=== PATIENT | female | born 1960 | race Caucasian/White ===

== ENCOUNTER 2018-10-29 13:36 | Inpatient (IN) ==
[2018-10-29 14:29] LABS: BASO# 0.06 X1000 (0.0-0.2); BASO% 0.6 % (0.0-0.8); EOS# 0.15 X1000 (0.0-0.7); EOS% 1.6 % (0.0-10.0); HEMATOCRIT 41.1 % (37.0-47.0); HEMOGLOBIN 13.9 g/dL (12.0-16.0); IMM GRAN# 0.07 X1000 (0.0-0.04); IMM GRAN% 0.8 % (0.0-0.5); LYMPH# 1.91 X1000 (1.2-3.4); LYMPH% 20.6 % (20.5-51.1); MCHC 33.8 g/dL (33-37); MCV 94.5 FL (81-99); MONO# 0.61 X1000 (0.11-0.59); MONO% 6.6 % (1.7-9.3); MPV 9.8 FL (7.4-10.4); NEUT# 6.45 X1000 (1.4-6.5); NEUT% 69.8 % (42.2-75.2); PLT 291 X1000 (130-400); RBC 4.35 XMIL (4.2-5.4); RDW 12.1 % (11.5-14.5); WBC 9.25 X1000 (4.8-10.8)
[2018-10-29 15:11] LABS: AGAP 13; ALBUMIN 4.2 g/dL (3.5-5.0); ALKALINE PHOSPHATASE 94 U/L (32-104); BUN 12 mg/dL (8-22); CALCIUM 8.8 mg/dL (8.8-10.2); CHLORIDE 98 mmol/L (98-107); COSMO 267; CREATININE 0.5 mg/dL (0.5-0.9); ESTIMATED GFR > 60; GLUCOSE 120 mg/dL (70-104); GOT 28 U/L (10-30); GPT 35 U/L (10-36); POTASSIUM 4.7 mmol/L (3.5-5.1); SODIUM 133 mmol/L (136-145); TCO2 22 mmol/L (25-35); TOTAL PROTEIN 7.3 g/dL (6.3-8.3)
--- NOTE | 2018-10-29 15:11 | Diag Imaging Result Doc PS360 ---
EXAM: CT HEAD W/O CONTRAST HISTORY: altered mental status TECHNIQUE: Images were obtained from the skull base to vertex without IV contrast as per standard protocol. COMPARISON: None. FINDINGS: The most inferior aspect of the cerebellum is noted from the radiographic field. There is hypodensity left cerebellar hemisphere possibly related to old infarct. No acute hemorrhage. No midline shift or mass effect. No hydrocephalus. No evidence for infarct given the limited sensitivity of CT. There is deep white matter hypodensity nonspecific in appearance but likely related to microvascular disease there is cerebral atrophy. IMPRESSION: 1.Atrophy and microvascular disease. 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 The most caudal images through the cerebellum were not included in the radiographic field of view. This exam was performed using automated exposure control, adjustment of mA or kV according to patient size, and/or use of iterative reconstruction technique. Electronically signed by Lucinda Fuentes 10/29/2018 3:08 PM
[2018-10-29 15:30] LABS: FREE T4 0.89 ng/dL (0.93-1.70); TSH 1.54 uIUmL (0.27-4.20)
[2018-10-29 15:46] LABS: BILIRUBIN URINE NEGATIVE (NEGATIVE); BLOOD URINE NEGATIVE (NEGATIVE); CLARITY CLEAR (CLEAR); COLOR YELLOW; GLUCOSE URINE NEGATIVE (NEGATIVE); KETONE URINE NEGATIVE (NEGATIVE); LEUKOCYTES URINE NEGATIVE (NEGATIVE); NITRITE URINE NEGATIVE (NEGATIVE); PROTEIN URINE NEGATIVE (NEGATIVE); UROBILINOGEN URINE NORMAL
[2018-10-29 15:49] LABS: URINE BACTERIA 1+ /HFP; URINE CAST NONE SEEN /LPF; URINE CRYSTAL NONE SEEN /HPF; URINE EPITHELIAL CELLS <10 /HPF (<10); URINE SOURCE CATH; URINE YEAST NONE SEEN /HPF
[2018-10-29 15:59] LABS: UR AMPHETAMINES QUAL NONE DETECTED (NONE DETECT); UR BARBITUATES QUAL NONE DETECTED (NONE DETECT); UR BENZODIAZEPIN QUAL NONE DETECTED (NONE DETECT); UR CANNABINOIDS QUAL PRESUMPTIVE POSITIVE (NONE DETECT); UR COCAINE QUAL NONE DETECTED (NONE DETECT); UR METHADONE QUAL NONE DETECTED (NONE DETECT); UR METHAMPHETAMINE QUAL NONE DETECTED (NONE DETECT); UR OPIATES QUAL NONE DETECTED (NONE DETECT); UR OXYCODONE QUAL NONE DETECTED (NONE DETECT); UR PCP QUAL NONE DETECTED (NONE DETECT); UR PROPOXYPHENE QUAL NONE DETECTED (NONE DETECT); UR TCA QUAL NONE DETECTED (NONE DETECT)
--- NOTE | 2018-10-29 16:24 | Diag Imaging Result Doc PS360 ---
EXAM: CHEST-PORTABLE 10/29/2018 HISTORY: cough, hypoxia TECHNIQUE: AP portable erect at 1606 COMMENT: The inspiration is suboptimal. There are no previous studies available for comparison. There is no focal opacity. The possibility of mild pulmonary edema cannot be entirely excluded. IMPRESSION: Suboptimal inspiration. Questionable pulmonary edema. Electronically signed by Mando Carballo 10/29/2018 4:21 PM
--- NOTE | 2018-10-29 17:22 | PROVIDER DOCUMENTATION ---
This chart was entered by Amanda Hong Scribe, acting as scribe for Kayleigh Acosta MD. HPI-General Adult - General Chief Complaint: Altered Mental Status Stated Complaint: AMS Time Seen by Provider: 10/29/18 13:58 Source: patient, EMS Unable to obtain history due to:: other (pt is not speaking at this time by choice) Allergies/Adverse Reactions: Patient Allergies Allergy/AdvReac Type Severity Reaction Status Date / Time No Known Allergies Allergy Verified 09/05/15 18:17 Home Medications: Home Medication List Medication Instructions Recorded Confirmed Last Taken Type ATORVAstatin [Lipitor] 40 mg PO QHS 09/05/15 09/05/15 1 Day Ago History ~09/04/15 Amlodipine [Norvasc] 5 mg PO DAILY 09/05/15 09/05/15 09/05/15 08:00 History Ezetimibe [Zetia] 10 mg PO DAILY 09/05/15 09/05/15 09/05/15 08:00 History Lisinopril 20 mg PO DAILY 09/05/15 09/05/15 09/05/15 08:00 History Omeprazole 40 mg PO DAILY 09/05/15 09/05/15 09/05/15 08:00 History Venlafaxine [Effexor] 75 mg PO DAILY 09/05/15 09/05/15 09/05/15 08:00 History Chlordiazepoxide [Librium] 25 mg PO Q12H #0 capsule 09/08/15 Unknown Rx - History of Present Illness -Gen Adult Nature of Presenting Problems: 58 yowf presents to the ed via ems and is not speaking. pt will folo0w commands but will not verbalize answers. when you ask the pt can she speak but just doesn 't want to she nods head yes. pt admits to drinking alcohol today but unsure how much or what kind. pt admits to smoking THC. pt denies DAVIS but does have nausea and abdominal pain. per ems pt was found wandering in her yard and would not speak to anyone. pt is nontoxic in appearance Location of Pain/Injury: reports: abdomen Pain Radiation: reports: no radiation Quality of Pain: reports: aching Severity: reports: mild Onset/Duration: reports: unsure Timing: reports: still present Context/Activities at Onset: reports: light activity Modifying Factors: improves with: nothing Associated Symptoms: reports: nausea. denies: back/neck pain, chest pain, cough , fever/chills, shortness of breath, vomiting, weakness Review of Systems - Adult - REVIEW OF SYSTEMS - ADULT ROS:: limited per condition Constitutional: denies: chills, fever Eyes: reports: no symptoms reported Ears, Nose, Mouth & Throat: reports: no symptoms reported Cardiovascular: denies: chest pain, palpitations Respiratory: denies: cough, shortness of breath, wheezing Gastrointestinal: reports: abdominal pain, nausea. denies: diarrhea, vomiting Genitourinary: reports: no symptoms reported Musculoskeletal: denies: back pain, neck pain Integumentary: reports: no symptoms reported Neurological: reports: no symptoms reported Psychiatric: reports: see HPI, other (pt is not verbal at this time by choice). denies: suicidal thoughts Endocrine: reports: no symptoms reported Hematologic/Lymphatic: reports: no symptoms reported Allergic/Immunologic: reports: no symptoms reported All Other Systems: Reviewed and Negative Past History - Adult - PAST MEDICAL HISTORY-ADULT Review of Records: reports: Old Records Reviewed, Nursing Assessment Review, Medications Reviewed, Social history reviewed & non-contributory. Major Childhood Illnesses: reports: denies history Cardiovascular: reports: HTN Respiratory: reports: denies history Gastrointestinal: reports: denies history Obstetrical/Gynecological: reports: denies history Genitourinary: reports: denies history Musculoskeletal: reports: denies history Neurological: reports: denies history Endocrine/Immune: reports: denies history Other Conditions: reports: denies history - PRIOR SURGERIES/PROCEDURES Surgical/Procedure History: reports: reviewed, not pertinent - IMMUNIZATION STATUS Childhood Immunizations: See Nurse Assessment Flu Vaccine: See Nurse Assessment - FAMILY HISTORY Family History: reviewed, not pertinent - SOCIAL HISTORY Smoking: cigarettes, greater than 1 pack/day Provider spent 3-5 mins advising pt. on dangers of tobacco.: Discussed manners to quit use, and f/u contacts for add'l counseling. Substance Use: alcohol, marijuana Alcohol Use Frequency: every day Living Situation: other (unsure pt will not talk) Physical Exam-General - PHYSICAL EXAM-ADULT Initial Vital Signs Reviewed: Yes - CONSTITUTIONAL General Appearance: appears well, alert, no apparent distress, obese - EYES Eyes: PERRL/EOMI, pink conjunctivae - HEAD, EARS, NOSE, MOUTH & THROAT HENMT: moist mucous membranes, normal ENT inspection - NECK Neck: non-tender, full range of motion, supple, normal inspection - RESPIRATORY Respiratory: chest non-tender, lungs clear, normal breath sounds - CARDIOVASCULAR Cardiovascular: normal peripheral pulses, tachycardia (103) - GASTROINTESTINAL (ABDOMEN) Abdominal Exam: normal bowel sounds, non tender, soft, other (c/o nausea) - LYMPHATIC Lymphatic: no adenopathy - MUSCULOSKELETAL Back Exam: normal inspection, no CVA tenderness, no vertebral tenderness Extremity: normal range of motion, non-tender, no pedal edema, no calf tenderness, normal capillary refill, pelvis stable - SKIN Integumentary: normal color, normal turgor, warm/dry - PSYCHIATRIC Psych/Mental Status: anxious, other (pt is not speaking and will answer all questions by shaking her head yes or no) Progress - PLAN OF CARE/RESULTS Progress/Plan/Lab Results: Vital Signs - 8 hr 10/29/18 13:57 Temperature 98.1 F Pulse Rate 103 H Respiratory Rate 18 Blood Pressure 142/86 O2 Sat by Pulse Oximetry 90 L Laboratory Results - last 24 hr 10/29/18 14:15 WBC 9.25 RBC 4.35 Hgb 13.9 Hct 41.1 MCV 94.5 MCH 32.0 H MCHC 33.8 RDW Std Deviation 12.1 Plt Count 291 MPV 9.8 Immature Gran % (Auto) 0.8 H Neut % (Auto) 69.8 Lymph % (Auto) 20.6 [place] % (Auto) 6.6 Eos % (Auto) 1.6 Baso % (Auto) 0.6 Immature Gran # (Auto) 0.07 H Neut # (Auto) 6.45 Lymph # (Auto) 1.91 [place] # (Auto) 0.61 H Eos # (Auto) 0.15 Baso # (Auto) 0.06 Orders Category Date Time Status CT HEAD W/O CONTRAST [CT] Stat Exams 10/29/18 14:15 Ordered CBC WITH ELECTRONIC DIFF [HEME] Stat Lab 10/29/18 14:15 Completed COMPREHENSIVE METABOLIC PANEL [CHEM] Stat Lab 10/29/18 14:15 Received FREE T4 Stat Lab 10/29/18 14:15 Received TSH Stat Lab 10/29/18 14:[address] W/POSS RFLX CULT [URINALYSIS] Stat Lab 10/29/18 13:58 Uncollected URINE DRUG SCREEN Stat Lab 10/29/18 14:14 Uncollected VITAMIN B12 Stat Lab 10/29/18 14:15 Received Result Diagrams: 10/29/18 14:15 10/29/18 14:15 - REASSESSMENT Reassessment #1 Time Reassessed: 14:45 Status: unchanged Reassessment Comment: resting in bed Reassessment #2 Time Reassessed: 16:18 (pt has family at bedside) Status: unchanged - XRAY 1 XRAY: Bilateral XRAY Study: Chest (EXAM: CHEST-PORTABLE 10/29/2018 HISTORY: cough, hypoxia TECHNIQUE: AP portable erect at 1606 COMMENT: The inspiration is suboptimal. There are no previous studies available for comparison. There is no focal opacity. The possibility of mild pulmonary edema cannot be entirely excluded. IMPRESSION: Suboptimal inspiration. Questionable pulmonary edema. Electronically signed by Mando Carballo 10/29/2018 4:21 PM 10/29/18 1621 Interpreting Physician: Mando Carballo MD Dictated Date/Time: 1621 cc: Kayleigh Acosta MD; Yoandy Sanchez DO) Impression: See EMR Report - CT/MRI 1 CT Study: Head (EXAM: CT HEAD W/O CONTRAST HISTORY: altered mental status TECHNIQUE: Images were obtained from the skull base to vertex without IV contrast as per standard protocol. COMPARISON: None. FINDINGS: The most inferior aspect of the cerebellum is noted from the radiographic field. There is hypodensity left cerebellar hemisphere possibly related to old infarct. No acute hemorrhage. No midline shift or mass effect. No hydrocephalus. No evidence for infarct given the limited sensitivity of CT. There is deep white matter hypodensity nonspecific in appearance but likely related to microvascular disease there is cerebral atrophy. IMPRESSION: 1.Atrophy and microvascular disease. 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 The most caudal images through the cerebellum were not included in the radiographic field of view. This exam was performed using automated exposure control, adjustment of mA or kV according to patient size, and/or use of iterative reconstruction technique. Electronically signed by Lucinda Fuentes 10/29/2018 3:08 PM [id number] Interpreting Physician: Lucinda Fuentes MD Dictated Date/Time: 10/29/18 [id number] cc: Kayleigh Acosta MD; Yoandy Sanchez DO) - CONSULTS/PCP/HOSPITALIST Notification #1 *Consult/PCP/Hospitalist*: hospitalist dr kessler Reason/Comments: ams Consult Disposition: Admit Departure - Departure Date of Disposition Decision: 10/29/18 Time of Disposition Decision: 17:43 DIAGNOSIS: Tetrahydrocannabinol (THC) use disorder, mild, abuse Altered mental status Qualifiers: Altered mental status type: unspecified Qualified Code(s): R41.82 - Altered mental status, unspecified Disposition: ADMITTED INPATIENT Certified Medical Emergency: Emergent Condition: Stable Referrals and Follow-Ups: Yoandy Sanchez DO [Primary Care Provider] - - Critical Care Note This patient required my direct & personal management of CC.: No Attestation - Physician/ LETTY Attestation Patient care was provided by Advanced Practice Provider:: No The physician spent face to face time with patient:: Yes Advanced Practice Provider documentation review:: Supervising physician onsite and consulted in the evaluation and care of this patient. The physician did have a face to face encounter with the patient. This chart was documented by the indicated scribe, (Amanda Hong Scribe) and accurately reflects the services I performed and decisions made by me, Kayleigh Acosta MD, as attested by the provider's signature.
[2018-10-29] MEDS ORDERED: ZOSYN 3.375 GM in NS 50 ML IV ONE (18:09)
[2018-10-29] MEDS ORDERED: NS 1,000 ML IV ONE (18:15)
[2018-10-29] MEDS ORDERED: ATARAX PO PRN (20:13)
[2018-10-29] MEDS ORDERED: M.V.I.-12 10 ML, FOLIC ACID 1 MG, MAGNESIUM SULFATE 1 GM, THIAMINE 100 MG in NS 1,000 ML IV ONE (20:13)
[2018-10-29] MEDS ORDERED: TYLENOL PO PRN (20:14)
[2018-10-29] MEDS ORDERED: ZOFRAN IV PRN (20:14)
[2018-10-29] MEDS: LIBRIUM PO SCH (22:02)
[2018-10-29] MEDS: PROTONIX IV SCH (23:06)
--- NOTE | 2018-10-30 01:27 | HISTORY AND PHYSICAL ---
ADDENDUM: Patient seen and examined by myself. Full note dictated and discussed with nurse practitioner. Patient's INCOMPLETE REPORT - DICTATION ENDS HERE cc: Aravind Chisholm MD
--- NOTE | 2018-10-30 01:48 | HISTORY AND PHYSICAL ---
ADDENDUM: Patient seen and examined by myself. Full note dictated and discussed with nurse practitioner. Patient was seen earlier today by her approximately 9 or 10 o'clock. Somewhere around 11 or 12 o'clock she confused, disoriented. She was outside. The neighbor found her and she did not know who she was, where she was or what she was doing. Currently, she is [*] She does not answer questions nor follow commands. She [*]and nods to answer questions. Unfortunately, she is a heavy alcoholic. The believes that she has not had anything to drink today and may have not had anything but a drink or 2 yesterday. He does note that she admits to smoking marijuana, but this was at least 2-3 weeks ago. We will admit to the hospital, place her on Librium and we will follow. Please see full note. cc: Aravind Chisholm MD
--- NOTE | 2018-10-30 02:39 | HISTORY AND PHYSICAL ---
CHIEF COMPLAINT: Altered mental status. HISTORY OF PRESENT ILLNESS: This is a 58-year-old female who presents to the emergency room via EMS after being found wandering around in her yard unable to answer questions. She will nod yes or no to questions. She follows commands. When asked if she is not talking because she does not want to, she shakes her head yes. She does have a history of alcohol use drinking 1-1/2 to 2 pints of vodka a day. She does nod that she did not drink today and in fact her blood alcohol was negative. She does have a history of marijuana use and she does nod yes that she smoked marijuana today and in fact it is present on her drug screen. CT of the head was performed which revealed atrophy and microvascular disease with a possible old left cerebellar infarct. She is being admitted for further evaluation and treatment. PAST MEDICAL HISTORY: 1. Alcohol use and abuse. 2. Hypertension. 3. High cholesterol. 4. Gastroesophageal reflux disease. 5. History of opiate abuse. SOCIAL HISTORY: She smokes a pack and a half to 2 packs a day. She drinks vodka 1-1/2 to 2 pints daily. She does use marijuana. ALLERGIES: No known drug allergies. HOME MEDICATIONS: A list will be obtained by the nursing staff and once reviewed we will restart as is appropriate. REVIEW OF SYSTEMS: Attempted with the patient although she is not consistent in answering at this time. She will not talk. PHYSICAL EXAMINATION: GENERAL: This is a 58-year-old female who is sitting up in the stretcher in no distress. VITAL SIGNS: Blood pressure is 142/86 with a heart rate of 100, respirations are 18, temperature is 98.1 with room air saturations 93% to 97%. EYES: Pupils are equal, round, reactive to light. EOMs are intact. Sclerae anicteric. HENT: Head is normocephalic, atraumatic. Mucous membranes are moist. NECK: Supple with trachea midline. CARDIOVASCULAR: Regular rate and rhythm. S1 and S2 are appreciated. She has no lower extremity edema with peripheral pulses palpable times 4 extremities. PULMONARY: Breath sounds are clear with no increased work of breathing noted. Chest rises and falls symmetric with respirations. GASTROINTESTINAL: Abdomen is soft, nontender, nondistended with bowel sounds in all 4 quadrants. GENITOURINARY: She has no CVA nor suprapubic tenderness. SKIN: Warm and dry. NEUROLOGIC: The patient will not speak. She does follow commands. She does shake her head yes and no. LABS: WBC is 9.2 with hemoglobin 13.9, hematocrit 41.1 and platelets of 291. Sodium is 133. Potassium 4.7. BUN 12. Creatinine 0.5. Glucose 120. TSH is 1.54 with a free T4 of 0.89. Urinalysis essentially negative. Urine drug screen is presumptive positive for cannabinoids and blood alcohol is none detected. Chest x-ray revealed suboptimal inspiration, possibility of mild pulmonary edema cannot be excluded. CT of the head revealed atrophy and microvascular disease with a possible old left cerebellar infarct. ASSESSMENT AND PLAN: 1. Altered mental status. Causes could be multifactorial. She did use marijuana today. Also, she states she drinks daily and did not drink today. Therefore, there could be alcohol withdrawal. She will be admitted. We will place her on neuro checks. 2. Possible alcohol withdrawal. We will start her on a low dose Librium taper at present. Give a banana bag. 3. History of hypertension. We will identify her home medications and continue. 4. Gastroesophageal reflux disease. We will use PPI. 5. Tobacco use and abuse. We will give a nicotine patch p.r.n. craving. 6. Deep venous thrombosis prophylaxis. We will use SCDs. We will repeat a CBC, CMP and magnesium in the morning. Further treatments pending hospital course. Dictated by LEE Leblanc for Aravind Chisholm MD This chart was documented by, LEE Leblanc and accurately reflects the services performed, treatment plan and medical decisions as attested by the providers signature Aravind Chisholm MD. cc: LEE Lelbanc MD [facility]IT[facility]
[2018-10-30] MEDS ORDERED: PNEUMOVAX 23 IM ONE (02:41)
[2018-10-30] MEDS: LIBRIUM PO SCH ×5 (04:04→21:57)
[2018-10-30 08:07] LABS: HEMATOCRIT 38.6 % (37.0-47.0); HEMOGLOBIN 13.1 g/dL (12.0-16.0); MCH 31.8 PG (27-31); MCHC 33.9 g/dL (33-37); MCV 93.7 FL (81-99); MPV 9.7 FL (7.4-10.4); RBC 4.12 XMIL (4.2-5.4); RDW 11.8 % (11.5-14.5); WBC 8.16 X1000 (4.8-10.8)
[2018-10-30] MEDS: SODIUM CHLORIDE 0.9% INJ SCH (08:26)
[2018-10-30] MEDS: PROTONIX IV SCH ×2 (08:26→21:57)
[2018-10-30 08:32] LABS: AGAP 11; ALBUMIN 3.7 g/dL (3.5-5.0); ALKALINE PHOSPHATASE 99 U/L (32-104); BUN 7 mg/dL (8-22); CALCIUM 8.2 mg/dL (8.8-10.2); CHLORIDE 97 mmol/L (98-107); COSMO 261; CREATININE 0.4 mg/dL (0.5-0.9); ESTIMATED GFR > 60; GLUCOSE 113 mg/dL (70-104); GOT 23 U/L (10-30); GPT 26 U/L (10-36); MAGNESIUM 2.4 mg/dL (1.5-2.7); POTASSIUM 4.1 mmol/L (3.5-5.1); SODIUM 131 mmol/L (136-145); TCO2 22 mmol/L (25-35); TOTAL PROTEIN 6.7 g/dL (6.3-8.3)
--- NOTE | 2018-10-30 09:48 | EKG Report ---
Test Performed on : 10/29/2018 3:23:18 PM Test Reason : pulmonary edema Blood Pressure : / mmHG Vent. Rate : 104 BPM Atrial Rate : 104 BPM P-R Int : 148 ms QRS Dur : 060 ms QT Int : 336 ms P-R-T Axes : 057 009 017 degrees QTc Int : 441 ms Sinus tachycardia. Otherwise normal ECG No previous ECGs available Unconfirmed Result
[2018-10-30] MEDS: ROCEPHIN 1 GM in NS 50 ML IV SCH (13:37)
--- NOTE | 2018-10-30 13:39 | Diag Imaging Result Doc PS360 ---
EXAM: MRI BRAIN W/O CONTRAST HISTORY: AMS TECHNIQUE: MRI brain without contrast. Axial, sagittal, and coronal images obtained in multiple sequences. COMPARISON: None. FINDINGS: Motion degrades image quality. There is a 9 mm lesion within the medial right occipital lobe. There is surrounding edema. No other mass or midline shift. Small old left cerebellar infarct. No hydrocephalus. No epidural or subdural fluid collection. No sinus opacification. IMPRESSION: Right occipital lesion which is suspicious for a mass with a small amount of surrounding edema. Other possibility would be a small recent infarct. Follow-up exam with contrast recommended. Electronically signed by Guru Salter 10/30/2018 1:37 PM
[2018-10-30] MEDS: NICODERM PATCH TD PRN (21:56)
--- NOTE | 2018-10-31 03:48 | PROGRESS NOTE ---
DATE: 10/30/2018 SUBJECTIVE: This morning patient is a little bit more awake, alert. She does answer questions. She is able to follow commands, but she does have occasional spells where she is staring off into space and seems lost. PHYSICAL EXAMINATION: Vital Signs: Temperature 98.4 degrees, pulse 104, respiratory 18, BP 132/87. General: Patient is awake, alert, currently in no distress. She is much more oriented than she had been. Still not back to her baseline. She is a pleasant to talk with. HEENT: Normocephalic. Neck: Supple. CARDIOVASCULAR: Regular rate. Chest: Clear and nonlabored. Abdomen: Soft. Extremities: Moves all extremities. ASSESSMENT: 1. Altered mental status. MRI is currently pending. 2. Possible alcohol withdrawal, but does not appear to be the case. cc: Aravind Chisholm MD
[2018-10-31] MEDS: LIBRIUM PO SCH ×2 (05:43→22:54)
[2018-10-31 06:33] LABS: HEMATOCRIT 39.3 % (37.0-47.0); HEMOGLOBIN 13.1 g/dL (12.0-16.0); MCHC 33.3 g/dL (33-37); MCV 93.1 FL (81-99); MPV 9.7 FL (7.4-10.4); RBC 4.22 XMIL (4.2-5.4); RDW 11.7 % (11.5-14.5); WBC 5.56 X1000 (4.8-10.8)
[2018-10-31 06:52] LABS: AGAP 12; ALBUMIN 3.7 g/dL (3.5-5.0); ALKALINE PHOSPHATASE 88 U/L (32-104); BUN 9 mg/dL (8-22); CALCIUM 8.4 mg/dL (8.8-10.2); CHLORIDE 95 mmol/L (98-107); COSMO 259; CREATININE 0.4 mg/dL (0.5-0.9); ESTIMATED GFR > 60; GLUCOSE 94 mg/dL (70-104); GOT 67 U/L (10-30); GPT 49 U/L (10-36); POTASSIUM 3.8 mmol/L (3.5-5.1); SODIUM 130 mmol/L (136-145); TCO2 23 mmol/L (25-35); TOTAL PROTEIN 6.6 g/dL (6.3-8.3)
[2018-10-31] MEDS: PROTONIX IV SCH (08:34)
[2018-10-31] MEDS ORDERED: DECADRON IV ONE (12:53)
[2018-10-31] MEDS ORDERED: EFFEXOR XR PO ONE (14:00)
--- NOTE | 2018-10-31 14:06 | Diag Imaging Result Doc PS360 ---
EXAM: MRI BRAIN W/CONTRAST INDICATION: AMS, ? mass COMPARISON: Unenhanced MRI brain dated 10/30/2018 FINDINGS: The small round mass seen on the recent unenhanced study is again identified. It is actually located in the inferomedial right parietal lobe. It appears to be intra-axial. It is situated near the cortex. There is peripheral enhancement at the margin of the lesion. And measures 9.4 x 8.4 mm axially. Given the morphology and location of this lesion, it is most consistent with a metastatic focus. The source of which is unknown. The internal restricted diffusion seen on yesterday's study suggests hypercellularity. There is no evidence of acute infarct. No other brain masses are identified. The brain is otherwise stable as compared to the recent unenhanced study. IMPRESSION: Peripheral enhancement associated with the subcentimeter mass in the right parietal lobe as described. Imaging characteristics are most indicative of a metastatic lesion from an unknown primary. Electronically signed by Axel Reeder 10/31/2018 2:03 PM
[2018-10-31] MEDS: ROCEPHIN 1 GM in NS 50 ML IV SCH (14:15)
--- NOTE | 2018-10-31 14:52 | Diag Imaging Result Doc PS360 ---
EXAM: CT THORAX/ABD/PELVIS W/CON INDICATION: BRAIN TUMOR, AMS TECHNIQUE: This exam was performed using automated exposure control, adjustment of mA or kV according to patient size, and/or use of iterative reconstruction technique. COMPARISON: None. FINDINGS: CHEST: There is minimal bilateral dependent atelectasis at the lung bases. The lungs are clear, otherwise. There is no pleural fluid collection and no pneumothorax. There is no cardiomegaly. There is no evidence of significant mediastinal or hilar lymphadenopathy. There is a fracture involving the anterolateral sixth rib on the left that appears recent. Please correlate clinically. There is an old healed fracture involving the right 12th rib. At the superior endplate of T12 anteriorly, there is avid focal sclerosis. This is more than would be expected from simple endplate degenerative sclerosis. This is suspicious for sclerotic metastatic lesion given the findings on the MRI brain. ABDOMEN/PELVIS: The liver, gallbladder, spleen, pancreas, adrenal glands, and kidneys are unremarkable. There is suggestion of very mild thickening involving the urinary bladder wall with trace adjacent stranding. Correlate clinically to evaluate for cystitis. No focal bladder mass can be identified. The reproductive tract is grossly unremarkable as imaged. The appendix is normal. There is minimal diverticulosis coli. There is no evidence of diverticulitis. The fundus of the stomach appears thickened. This may be, at least in part, due to underdistention. However, gastritis cannot be excluded. Also, given the other findings, gastric neoplasm is possible. However, no well-defined gastric mass can be identified. The remainder of the GI tract is unremarkable. There is no evidence of significant abdominal or pelvic lymphadenopathy. There is degenerative disc disease and facet arthropathy at L5-S1. There is no definite sign of bony metastatic disease to the abdomen or pelvis. IMPRESSION: 1.Fracture of the left sixth rib that appears to be recent. Please correlate clinically. 2.Sclerosis involving the T12 vertebral body as detailed above. A metastatic lesion cannot be excluded. 3.Thickening of the wall of the stomach at the fundus. Although this may be, at least in part, due to incomplete distention, gastric neoplasm should be considered given the findings on the MRI brain. 4.Questionable minimal diffuse urinary bladder wall thickening with subtle surrounding stranding. Correlate clinically to exclude cystitis. No focal bladder mass is identified. 5.Other external/nonacute findings detailed above. Electronically signed by Axel Reeder 10/31/2018 2:49 PM
[2018-10-31] MEDS: DILANTIN PO SCH ×4 (18:51→22:55)
[2018-10-31] MEDS: DECADRON PO SCH (18:51)
[2018-10-31] MEDS: LIPITOR PO SCH (22:55)
[2018-10-31] MEDS: NICODERM PATCH TD PRN (23:41)
--- NOTE | 2018-11-01 01:19 | PROGRESS NOTE ---
DATE: 10/31/2018 SUBJECTIVE: Patient still confused. Her notes that she has periods of lucency but then bounces back to confusion and disorientation. She states that she has had episodes of confusion, disorientation off and on for the past week. She fell several times a week ago. Patient herself denies any headaches. Denies any vision changes. Denies any focalized weakness. Does note that at times she is confused. PHYSICAL EXAM: Vital Signs: Temperature 98.1 degrees, pulse 104, respiratory 20, BP 132/84. General: Patient is awake. She is very pleasant to talk with although she is confused and disoriented. HEENT: Normocephalic. Neck: Supple. Cardiovascular: Tachycardia. Chest: Clear and nonlabored. Abdomen: Soft, nondistended. Extremities: Moves all extremities. ASSESSMENT: 1. New solitary ring-enhancing lesion, brain of undetermined origin. 2. Chronic alcohol history with mild acute withdrawal. 3. Hypertension. 4. Left rib fracture with old healing right rib fracture. 5. Frequent falls. 6. Acute metabolic encephalopathy secondary to the ring-enhancing lesion. PLAN: We will continue patient in the hospital, but we will transfer to [facility]. Of note, she did have a mammogram recently that was reported as negative and a colonoscopy last year that was reported as negative. CT abdomen, pelvis and thorax did not show any metastatic disease. MRI with contrast did show the lesion enhanced. We will continue to follow. We have discussed with Dr. Mcfarland as well as Dr. Henson. We will consult Dr. Henson and follow. cc: Aravind Chisholm MD
[2018-11-01] MEDS ORDERED: ATARAX PO ONE (02:27)
[2018-11-01] MEDS: DECADRON PO SCH ×4 (02:35→21:31)
[2018-11-01] MEDS: PROTONIX IV SCH ×2 (06:49→17:27)
--- NOTE | 2018-11-01 07:29 | CONSULTATION ---
DATE OF CONSULTATION: 10/31/2018 Ms. Beltre is 58 years old. She was admitted with reported inappropriate behavior, wandering, reporting that she had trouble talking, but she was communicating, talking some times. Her history to me is that she remembers feeling funny and she remembers thinking she was clumsy and unsteady and that she had fallen a few times. She reports she does not recall noticing weakness or clumsiness in 1 limb or 1 group of limbs more than another. She believes there are some gaps in her memory but she does not believe these were periods of altered awareness or unconsciousness. She does not remember having significant headache. She believes all of this has been going on for some period of time, possibly weeks or longer. She reports no previous history of stroke, seizure, serious head injury, other neurologic event. She has a long history of ethanol abuse. She presented this time with serum ethanol level 0 with urine toxicology positive for THC, negative for all others. Her admission lab work showed sodium 130-131, nothing else remarkable. She has been afebrile. Brain MRI with contrast today shows a ring enhancing lesion in the right occipital parietal area. I do not have the radiologist's report at this time. Earlier noncontrast MRI shows this area. Initial noncontrast CT, in retrospect, shows the lesion but it was not very apparent on the CT. On exam, she is awake, alert, attentive. She is oriented. Speech is not dysarthric. Language function is intact on brief bedside testing. She has some trouble remembering recent events. Head and neck are unremarkable. There is no meningismus. Visual morrison are full tested carefully monocularly and binocularly by confrontational finger counting. Extraocular movements are full. Facial motility is symmetric. Gag is intact. Tongue is midline. Hearing is good. Shoulder shrug is equal. Strength is normal in the arms and legs. She did well on [id number] testing bilaterally. She has slight difficulty with [id number] testing symmetrically. She has good power in the limbs. Tone is symmetric. She reports good sensation on gross testing over the limbs. Proprioception is limited at the great toe MTP joint bilaterally. Reflexes are trace at the ankles and 2+ at the knees. I did not test her gait. IMPRESSION: 1. Right occipitoparietal ring-enhancing lesion. This is worrisome for tumor or abscess. 2. Recent odd behavior: It may be possible that she has had partial seizures causing some of this behavior. Another possibility would be substance intoxication and/or withdrawal. 3. I suggested that she stop smoking cigarettes, stop using ethanol, stop using illicit drugs, take her medicines as prescribed. I suggested that she not drive until we have things sorted out. The EEG would be a good idea when practical but I do not think that is available here now. I would empirically give her medicine for seizure control, probably start with phenytoin since toxicity is easy to recognize and levels can be reported quickly. Oxcarbazepine would have similar toxicity profile but levels reports are not available quickly. Levetiracetam might provide good seizure control but might aggravate any underlying personality problem. Divalproex could have adverse effect on liver, creating potential problems following a patient that may have malignancy and who has history of significant ethanol use. Lamotrigine would be a good idea but titration is lengthy. 4. Would also complete a workup for underlying malignancy. Depending on her clinical course and workup results, I will be glad to see her again. Thanks for asking Neurology to see Ms. Beltre. cc: MD ARMEN Nelson III
[2018-11-01] MEDS: LIBRIUM PO SCH ×2 (09:05→21:31)
[2018-11-01] MEDS: BENICAR PO SCH (09:07)
[2018-11-01] MEDS: FERROUS SULFATE PO SCH (09:08)
[2018-11-01] MEDS: NORVASC PO SCH (09:08)
[2018-11-01 09:18] LABS: BASO# 0.01 X1000 (0.0-0.2); BASO% 0.2 % (0.0-0.8); HEMATOCRIT 44.6 % (37.0-47.0); HEMOGLOBIN 15.4 g/dL (12.0-16.0); IMM GRAN# 0.02 X1000 (0.0-0.04); IMM GRAN% 0.3 % (0.0-0.5); LYMPH# 0.92 X1000 (1.2-3.4); MCH 31.3 PG (27-31); MCHC 34.5 g/dL (33-37); MCV 90.7 FL (81-99); MONO# 0.23 X1000 (0.11-0.59); MONO% 3.8 % (1.7-9.3); MPV 9.7 FL (7.4-10.4); NEUT# 4.95 X1000 (1.4-6.5); NEUT% 80.7 % (42.2-75.2); PLT 371 X1000 (130-400); RBC 4.92 XMIL (4.2-5.4); RDW 11.4 % (11.5-14.5); WBC 6.13 X1000 (4.8-10.8)
[2018-11-01 09:41] LABS: AGAP 15; ALB/GLOB RATIO 1.5; ALBUMIN 4.8 g/dL (3.5-5.0); ALKALINE PHOSPHATASE 93 U/L (32-104); BUN 6 mg/dL (8-22); CALCIUM 10.1 mg/dL (8.8-10.2); CHLORIDE 93 mmol/L (98-107); COSMO 264; CREATININE 0.5 mg/dL (0.5-0.9); ESTIMATED GFR > 60; GLUCOSE 139 mg/dL (70-104); GOT 43 U/L (10-30); GPT 54 U/L (10-36); POTASSIUM 3.5 mmol/L (3.5-5.1); SODIUM 132 mmol/L (136-145); TCO2 24 mmol/L (25-35)
[2018-11-01] MEDS: PRILOSEC PO SCH (09:52)
[2018-11-01] MEDS: ROCEPHIN 1 GM in NS 50 ML IV SCH (12:30)
[2018-11-01] MEDS ORDERED: SEROQUEL PO PRN (13:58)
--- NOTE | 2018-11-01 14:36 | PROGRESS NOTE ---
DATE: 11/01/2018 INTERVAL HISTORY: The patient still mildly confused most of the time and with occasional increase in confusion and agitation. Afebrile. No other new complaints. No other acute events overnight. REVIEW OF SYSTEMS: Twelve-point review of systems negative as per interval history. LABORATORY DATA: CBC unremarkable. Chemistry with sodium 132, potassium 3.5, chloride 93, bicarb 24. BUN 6, creatinine 0.5, glucose 139, AST 43, ALT 54, LDH 304, CEA 4.5. IMAGING: CT chest, abdomen, and pelvis with recent left 6th rib fracture, sclerosis of T12 vertebral body, thickening of the wall of the stomach at the fundus, which could be due to incomplete distention but also could be a gastric neoplasm. Brain MRI: Peripheral enhancement associated with subcentimeter mass in the right parietal lobe favored to represent metastatic focus. Chest x-ray largely unremarkable. VITAL SIGNS: T-max 98.5, pulse 92, respirations 20, blood pressure 143/92. Oxygen saturation 96% on room air. PHYSICAL EXAMINATION: General: In no acute distress. Vital signs as above. HEENT: Normocephalic, atraumatic. Moist mucous membranes. No cervical adenopathy. Cardiovascular: Regular rate and rhythm. No murmurs, rubs, or gallops. Pulmonary clear to auscultation bilaterally. No wheezes, rales, or rhonchi noted. Abdomen soft, nontender, and nondistended. Bowel sounds positive. No obvious masses noted. Extremities: Peripheral pulses intact. No clubbing, cyanosis, or edema. Neurologic: Moving all extremities well with no clear focal deficits. No facial asymmetry. Pupils equal, round, reactive to light. Psychiatric: Normal mood and affect. Oriented to person and time but struggled with place. Cooperative. Largely able to converse but does appear to be mildly confused. ASSESSMENT AND PLAN: 1. Metabolic encephalopathy: likely related to brain mass noted on MRI, which is favored to be metastatic malignancy. Also some question of possible partial seizures. Neurology starting patient on phenytoin. still some mild confusion but significantly improved from previous. Dr. Henson with Oncology evaluating and, per the family, considering transfer to [facility] for their evaluation there. We will treat symptomatically and await further oncology recommendations. 2. Chronic heavy alcohol use. No tremulousness and no tachycardia. So, alcohol withdrawal, less likely the cause of her confusion; however, will continue patient on Librium and have a low threshold to give additional benzodiazepine if any signs of alcohol withdrawal develop. 3. Hypertension. Continue home Norvasc and olmesartan. Reasonable control so far. 4. Hyponatremia, mild, asymptomatic and somewhat improved from yesterday with sodium of 132. Continue monitoring. No need for acute intervention at this time. 5. Gastroesophageal reflux disease. Continue Prilosec. 6. Hyperlipidemia. Continue statin 7. Tobacco abuse. Continue nicotine patch. 8. Patient currently on Rocephin started empirically when she came in. No clear sign of infection identified. Will leave it for today, but if she continues to show no signs of infection will likely discontinue antibiotics tomorrow. ARMEN
--- NOTE | 2018-11-01 14:38 | HEMO/ONC CONSULTATION ---
DATE: 11/01/2018 CHIEF COMPLAINT: Further evaluation of metastatic brain lesion. HISTORY OF PRESENT ILLNESS: This is a 58-year-old female who came to the emergency department by EMS after being found wandering around in her yard and unable to answer questions. The patient was able to follow commands but not talking at that time. The patient had been drinking alcohol. She has a history of drinking 1-1/2 to 2 pints of vodka a day. The patient also uses marijuana on a regular basis. Since being admitted, the patient had a brain MRI that showed the right occipital lesion suspicious for mass, a small amount of surrounding edema. PAST MEDICAL HISTORY: Alcohol use and abuse, hypertension, high cholesterol, GERD, history of opiate abuse. PAST SURGICAL HISTORY: The patient denies any surgical history. SOCIAL HISTORY: Smokes 1-1/2 packs to 2 packs a day. Drinks vodka 1-1/2 to 2 pints a day and uses marijuana on a regular basis. FAMILY HISTORY: Noncontributory. ALLERGIES: Allergic to sulfa. HOME MEDICATIONS: Alendronate sodium, Norvasc, Lipitor, ferrous sulfate, olmesartan, medoxomil, omeprazole, venlafaxine. REVIEW OF SYSTEMS: Negative unless mentioned in HPI. PHYSICAL EXAMINATION: Vital signs: Temperature is 98.0, heart rate 92, respiratory rate 20, blood pressure 143/92, saturation is 97% on room air. General: The patient is awake, lying in bed, no acute distress noted. HEENT: Anicteric. PERRLA. Mucous membranes are moist. Neck: Trachea midline. No JVD. Lymph nodes: No palpable lymphadenopathy. Chest: Bilateral breath sounds clear to auscultation. Cardiovascular: S1, S2. Regular rate and rhythm. Abdomen: Soft. Nontender. Bowel sounds present in all 4 quadrants. Skin: Warm, dry and intact. No petechia. No clubbing. No cyanosis. Neurologic: Alert and oriented x3. No focal deficits noted. DIAGNOSTIC DATA: White blood cell count is 5.56, hemoglobin 13.1, hematocrit 39.3, platelets are 295. RADIOLOGY RESULTS: Brain MRI showed peripheral enhancement associated with a subcentimeter mass in the right parietal lobe as described above, most indicative of a metastatic lesion from an unknown primary. CT of the chest, abdomen and pelvis showed a fracture of left 6th rib that appears to be recent, scoliosis involving the T12 vertebral body, metastatic lesion cannot be excluded. Thickening of the gastric wall this may be due to incomplete distention. Gastric neoplasm should be considered given the findings on the MRI. ASSESSMENT AND PLAN: 1. Brain lesion. Brain MRI showed subcentimeter mass in the right parietal lobe. Dr. Mcfarland has also been consulted. The patient has been started on steroids for the edema. Further workup is being performed. Patient's family is requesting transfer to [facility] for further evaluation. 2. Alcohol abuse. The patient has been counseled on alcohol cessation. Continue to monitor for any alcohol withdrawals. Continue recommendations by primary medical team. 3. Hypertension. Aware. Continue recommendations by primary medical team. Plan discussed with Dr. Henson. Dictated by LEE Curiel for Bryant Henson MD Patient seen and examined. As above. Patient admitted with change in mental status. Neurology has evaluated small lesion in the brain. Staging CT chest, abdomen and pelvis reveals nonspecific gastric wall thickening, bladder wall thickening and a small nonspecific sclerotic abnormality at T12. I discussed findings with the family. They are very keen on going to [facility] for neurology/ neurosurgical care. We will try to make attempts for transfer. Bryant Henson M.D. [facility]
[2018-11-01] MEDS: SODIUM CHLORIDE 0.9% INJ SCH (17:27)
[2018-11-01] MEDS ORDERED: DILANTIN PO SCH (21:00)
[2018-11-01] MEDS: LIPITOR PO SCH (21:31)
[2018-11-01] MEDS: NICODERM PATCH TD PRN (21:31)
[2018-11-02] MEDS: DECADRON PO SCH ×2 (06:23→08:28)
[2018-11-02] MEDS: PRILOSEC PO SCH (06:23)
[2018-11-02] MEDS: PROTONIX IV SCH (06:43)
[2018-11-02 07:26] LABS: BASO# 0.01 X1000 (0.0-0.2); BASO% 0.1 % (0.0-0.8); HEMATOCRIT 42.5 % (37.0-47.0); HEMOGLOBIN 14.5 g/dL (12.0-16.0); IMM GRAN# 0.04 X1000 (0.0-0.04); IMM GRAN% 0.4 % (0.0-0.5); LYMPH# 1.37 X1000 (1.2-3.4); LYMPH% 14.4 % (20.5-51.1); MCH 31.3 PG (27-31); MCHC 34.1 g/dL (33-37); MCV 91.8 FL (81-99); MONO# 0.57 X1000 (0.11-0.59); NEUT# 7.54 X1000 (1.4-6.5); NEUT% 79.1 % (42.2-75.2); PLT 360 X1000 (130-400); RBC 4.63 XMIL (4.2-5.4); RDW 11.7 % (11.5-14.5); WBC 9.53 X1000 (4.8-10.8)
[2018-11-02 07:55] LABS: AGAP 17; ALB/GLOB RATIO 1.4; ALBUMIN 4.1 g/dL (3.5-5.0); ALKALINE PHOSPHATASE 80 U/L (32-104); BUN 11 mg/dL (8-22); CALCIUM 9.4 mg/dL (8.8-10.2); CHLORIDE 96 mmol/L (98-107); COSMO 267; CREATININE 0.5 mg/dL (0.5-0.9); ESTIMATED GFR > 60; GLUCOSE 112 mg/dL (70-104); GOT 26 U/L (10-30); GPT 42 U/L (10-36); POTASSIUM 4.1 mmol/L (3.5-5.1); SODIUM 133 mmol/L (136-145); TCO2 20 mmol/L (25-35); TOTAL BILIRUBIN 0.34 mg/dL (0.20-1.00); TOTAL PROTEIN 7.1 g/dL (6.3-8.3)
[2018-11-02] MEDS: NORVASC PO SCH (08:28)
[2018-11-02] MEDS: BENICAR PO SCH (08:29)
[2018-11-02] MEDS: FERROUS SULFATE PO SCH (08:30)
[2018-11-02] MEDS: LIBRIUM PO SCH (08:30)
--- NOTE | 2018-11-02 11:31 | PROGRESS NOTE ---
DATE: 11/02/2018 INTERVAL HISTORY: The patient remains mildly confused, but continues to improve slowly. She is able to perform most activities of daily living independently at this point. Cooperative. Statements do not always make sense, but she is largely able to converse appropriately. No new complaints. No acute events overnight. REVIEW OF SYSTEMS: 12-point review of systems negative except as per interval history. LABORATORIES: CBC unremarkable. Chemistry with sodium 133, chloride 96, bicarb 20, BUN 11, creatinine 0.5, glucose 112, bilirubin 0.34. AST 26, ALT 42. Alkaline phosphatase 80. PHYSICAL EXAMINATION: Vitals: Temperature maximum 98.5, pulse 99, respirations 16, blood pressure 121/84, O2 saturation 100% on room air. General: No acute distress. Vitals as above. HEENT: Normocephalic, atraumatic. Moist mucous membranes. No cervical adenopathy. Cardiovascular: Regular rate and rhythm. No murmurs, rubs, or gallops. Pulmonary: Computed tomography angiography bilaterally. No wheezing, rales or rhonchi. Abdomen: Soft, nontender, nondistended. Bowel sounds positive. Extremities: Peripheral pulses intact. No cyanosis, clubbing or edema. Neurologic: Moving all extremities well. Cranial nerves grossly intact. No focal deficits identified. No facial asymmetry. Pupils equal, round, react to light. Psychiatric: Normal mood, slightly odd affect, oriented to person. Struggles slightly with time and place. Thought we were in September 2014 in [place]. Cooperative following commands, able to converse, but occasionally statements do not make sense. ASSESSMENT AND PLAN: 1. Metabolic encephalopathy, likely related to brain mass noted on MRI which is favored to be metastatic malignancy. Also some question of partial seizures since started on phenytoin by Neurology. Continues to have some mild confusion, but improving slowly and significantly improved from admission. Dr. Henson with Oncology evaluating patient and per the family, considering transfer to [facility] for further evaluation there. We will continue to treat symptomatically. If patient unable to transfer to [facility] from the hospital, then may be stable enough for the next 1-2 days for discharge with close follow-up in clinic at [facility]. Patient was started on Rocephin empirically initially, but infectious workup has been negative, so we will discontinue antibiotics at this time and monitor. 2. Chronic heavy alcohol use. No tremulousness, no tachycardia, now greater than 4 days with no alcohol. So likely out of the range for significant alcohol withdrawal. Finishing Librium taper. 3. Hypertension, continue home Norvasc and olmesartan, reasonable control so far. 4. Hyponatremia. Mild asymptomatic and slightly improved from previous today. 5. Gastroesophageal reflux disease. Continue Prilosec. 6. Hyperlipidemia. Continue statin. 7. Tobacco abuse. Continue nicotine patch. 8. Deep vein thrombosis prophylaxis. SCDs.
[2018-11-02 11:55] VITALS: BP 125/90
--- NOTE | 2018-11-02 12:58 | DISCHARGE SUMMARY ---
ADMISSION DATE: 10/29/2018 DISCHARGE DATE: 11/02/2018 ADMITTING DIAGNOSES: 1. Encephalopathy. 2. Alcohol withdrawal. 3. Hypertension. 4. Gastroesophageal reflux disease. 5. Nicotine dependence. 6. Alcohol dependence. DISCHARGE DIAGNOSES: 1. Right occipitoparietal ring enhancing lesion. 2. Encephalopathy. 3. Nicotine dependence. 4. Alcohol dependence. 5. Marijuana dependence. 6. Hypertension. 7. Gastroesophageal reflux disease. 8. Hyponatremia. 9. Hyperlipidemia. CONSULTATIONS: Dr. Jelena Mcfarland with Neurology, Dr. Bryant Henson with Oncology. DIAGNOSTIC PROCEDURES AND FINDINGS: Head CT on 10/29/2018 with atrophy and microvascular disease, possible old left cerebellar infarct. The most caudal images through the cerebellum were not included in the radiographic field of view. Chest x-ray on 10/29/2018 with suboptimal inspiration, questionable pulmonary edema. EKG on 10/29/2018 showed sinus tachycardia with no acute ST or T abnormalities. Brain MRI on 10/30/2018 with right occipital lesion which is suspicious for mass with a small amount of surrounding edema. Other possibility would be a small recent infarct. Followup recommended. Chest, abdomen and pelvis on 10/31/2018 with fracture of the left 6th rib that appears to be recent, sclerosis of T12 vertebral body, metastatic lesion cannot be excluded. Thickening of the wall of the stomach at the fundus, although this may be at least in part due to incomplete distention. Gastric neoplasm should be considered given the findings on the MRI of the brain. Questionable diffuse urinary bladder wall thickening with subtle surrounding stranding. HOSPITAL COURSE: Ms. Beltre is a 58-year-old female who came to [facility] after she was found wandering in her yard and was encephalopathic. She has a heavy history of alcohol dependence, drinking 1-1/2 to 2 pints of vodka a day. She also smoked marijuana and cigarettes. She was brought to [facility], and a head CT was done which was initially negative. There was a possibility of old cerebellar infarct. She was admitted for presumptive alcohol withdrawal and dependence. She was started on appropriate withdrawal medications; however, she continued to have quite altered mentation. MRI was done at [place], and it was shown to have a right enhancing lesion in the right parietal lobe. She was then transferred to our facility for consultations with Neurology and Oncology. A chest, abdomen and pelvis CT was done which showed left rib fracture, T12 vertebral body sclerosis, thickening of the wall of the stomach at the fundus, and diffuse urinary bladder wall thickening. She was started on steroids for the edema, and she continued on alcohol withdrawal medications. She was also seen by Neurology while she was here. Ultimately, the decision was made that she would need to see a neurosurgeon, and Oncology consulted Neurosurgery at [facility] who accepted the patient in transfer. Accepting physician is Dr. Ammy Levine at [facility] with the Neurosurgical Team. Her vitals and labs have been overall stable. She has shown signs of alcohol withdrawal, but this has improved greatly, and she is on minimal dosing of Librium which will be discontinued prior to discharge to [facility]. Overall she is stable and ready for transport to [place]. DISCHARGE MEDICATIONS: Norvasc 5 mg daily, Lipitor 40 mg at bedtime, omeprazole 40 mg daily, iron sulfate 325 mg p.o. daily, olmesartan 20 mg p.o. daily, Dilantin 300 mg p.o. at bedtime, dexamethasone 4 mg p.o. q.6 hours, nicotine patch 21 mg daily as needed, Zofran 4 mg IV as needed, Seroquel 25 mg p.o. b.i.d. DISCHARGE DIET: Heart healthy. DISCHARGE ACTIVITY: She will resume activity under the care of [facility] and their direction. DISCHARGE LABORATORY DATA: WBC is 9.53, hemoglobin 14.5, hematocrit 42.5, platelet count 360. Sodium is 133, potassium 4.1, chloride 96, CO2 is 20, anion gap 17, BUN is 11, creatinine 0.5, glucose 112, total bilirubin is 0.34, AST is 26, ALT is 42, alkaline phosphatase 80, protein 7.1. PHYSICAL EXAMINATION: GENERAL: No acute distress. HEENT: Head is atraumatic and normocephalic. Moist mucous membranes. NECK: No cervical adenopathy. CARDIOVASCULAR: Regular rate and rhythm. No murmurs, rubs or gallops. PULMONARY: Clear to auscultation bilaterally. No wheezing, rales, or rhonchi. ABDOMEN: Soft, nontender and nondistended. Bowel sounds positive. EXTREMITIES: Peripheral pulses intact. No cyanosis, clubbing or edema. NEUROLOGICAL: Moves all extremities well. Cranial nerves grossly intact. No focal deficits noted. No facial asymmetry. Pupils are equal, round and reactive to light. PSYCHIATRIC: Normal mood. Slightly odd affect. Oriented to person. Struggles slightly with time and place. She does still think it is 2013 and versus . She is cooperative, able to converse, but occasionally statements do not make sense. DISPOSITION AND OTHER DISCHARGE INSTRUCTIONS: The patient is discharged to [facility] under the care of Dr. Ammy Levine. Followup to be made by the primary care team at [facility]. She can return to the ER or call 911 for any worsening complaints or concerns. All questions answered. Discharge time greater than 35 minutes. Dictated by LEE Rodriguez for Teo Hernandez MD cc: LEE Rodriguez MD Eston G. Norwood III, MD Agree with above. the following is my own face to face assessment and exam. Patient still mildly confused but much improved from previous. no focal neurologic deficits on exam. heart: RRR. no tremulousness noted. transferring to [facility] for further evaluation of brain mass, likely metastatic malignancy, by neurosurgery there. ARMEN
--- NOTE | 2018-11-02 14:20 | CONSULTATION ---
DATE OF CONSULTATION: 11/02/2018 CONSULTING PHYSICIAN: Dr. Hernandez. REASON FOR CONSULT: Abnormal imaging, possible EGD. HISTORY OF PRESENT ILLNESS: This is a 58-year-old white female who was brought to the hospital with altered mental status. She was found to be confused at her home and unable to answer questions. There was a question of possible alcohol withdrawal. She has been drinking heavily and she also has a history of marijuana usage. But on CT scan of the abdomen she was found to have changes suggestive of possible lesion in her brain and on further investigation, there was question of possible thickening of the stomach wall, possible gastritis or tumor. Consult was obtained to proceed with EGD to evaluate for possible primary in the stomach. The patient has still been confused and not answering questions appropriately, from discussion with son. Upon further discussion with the son, it appeared that she did not have any GI issues. Apparently she has had a colonoscopy and it was negative. No tumor was seen there. She has not had any indigestion, heartburn, reflux symptoms. Denies any dysphagia or odynophagia. Her appetite has been fair. PAST MEDICAL HISTORY: Significant for gastroesophageal reflux disease, hypertension, hyperlipidemia, history of alcohol abuse and marijuana abuse. PAST SURGICAL HISTORY: She has had a colonoscopy recently. MEDICATIONS: Prior to hospitalization, she has been on Norvasc, Lipitor, Decadron, NicoDerm patch, Zofran, Dilantin, and Seroquel. ALLERGIES: Claims to be allergic to sulfa. SOCIAL HISTORY: Patient smokes about 2 packs per day. Drinks heavily and also uses marijuana. FAMILY HISTORY: Noncontributory. REVIEW OF SYSTEMS: As per HPI above. PHYSICAL EXAMINATION: General: Very pleasant white female. She is sitting in the bed, conscious, alert. Responsive to questions but still confused. Vital signs: Temperature 97.9 degrees, pulse 99 per minute, breathing 16, blood pressure 121/84. HEENT: Head is atraumatic, normocephalic. Eyes: Conjunctivae normal. Sclerae anicteric. Nares are patent. No discharge. Mouth: Buccal mucosa is moist. Throat is normal. Neck: Neck is supple. No lymphadenopathy or thyromegaly. Chest: Clear to auscultate. Heart: S1, S2 audible. No murmur could be appreciated. Abdomen: Full, soft, nontender. No masses were noted. Bowel sounds are audible. Extremities: No pedal edema, cyanosis, or clubbing was noted. CS ASSOCIATE: Grossly intact. No sensory or motor deficit. LABORATORIES: Reviewed. WBC 9.5, hemoglobin 14.5, hematocrit 42.5, MCV 91.8, platelets were 360,000. Sodium 133, potassium 4.1, chloride 96, bicarb 20, BUN is 11, creatinine 0.5. Transaminases: AST was 26, ALT 42, alkaline phosphatase was 80, total bilirubin was 0.34. The MRI of the brain reported ring-enhancing lesion with subcentimeter mass in the right parietal lobe was noted. Possible metastatic lesion. IMPRESSION: Brain metastasis, primary at this point not known. The CT scan of the abdomen showed possible thickened wall in the stomach, especially the fundus. The patient is not anemic or have any other evidence of possible GI tumor. However, before proceeding with direct biopsy of the brain, EGD was requested to rule out GI pathology. But on further discussion with the patient's son, it appears that the patient and family members are trying to get her transfer to [facility] where workup would be done, both neurological as well as GI workup if needed. I have advised them to call me and let me know. If she is still here we can proceed with EGD. Otherwise, the GI workup will be done at [facility] if she gets transferred sooner. I have answered all of their pertinent questions. cc: Mauri Sanon MD
== END 2018-11-02 13:45 | disposition short-term general hospital (02) | DRG 54 ==
LOC: SUPCPDRO → P.ED 13:36 → SUATTDRO 21:10 → P.EDIPHOLD 21:10 → P.MEDSURG 10-30 00:31 → 3N 10-31 22:29
PROVIDERS: ATTEND Internal Medicine
CPT/HCPCS: 51701; 70450; 70551; 70552; 71010; 71045; 71260; 74177; 80053; 80104; 80301; 80305; 80307; 80320; 81001; 82055; 82140; 82378; 82607; 82948; 83615; 83735; 83880; 84439; 84443; 84484; 85025; 85027; 86301; 93005; 94761; 96361; 96365; 96366; 96367; 96375; 99285; A9270; A9579; C9113; G0431; G0434; G0477; G0480; G6040; J0696; J2543; J3411; J3475; J7030; J8540; P9612; Q9967; S0164; XXXXX